=== PATIENT | male | born 1935 | race Two or more races ===

== ENCOUNTER → 2016-09-02 | Outpatient (CLI) | payer MEDICARE, MEDICAID ==
[~2016-09-02] VITALS: Ht 167.6 cm; Wt 73.0 kg
[~2016-09-02] MED LIST: ASPI-498 OR; ATOR20TA PO; CHOL50006 PO; CLOP75TA28 PO; GLUC750T29 PO; METO100T87 PO; NITR0.4S29 SL; RANO500T2 PO; SPIR25TA89 PO; TAM04C PO; VALS40TA2 PO
[2016-09-02 09:20] VITALS: BP 134/80
[2016-09-02 10:03] VITALS: BP 123/68
[2016-09-02 12:45] LABS: Basophils # (auto) 0 uL; Basophils % (auto) 0.5 % (0.0-2.0); Eosinophils # (auto) 0.2 uL; Eosinophils % (auto) 1.8 % (0.0-7.0); Hemoglobin 14.7 g/dL (13.5-17.5); Lymphocytes # (auto) 1.9 uL; Lymphocytes % (auto) 22.9 % (10.0-50.0); Mean Corpuscular Hemoglobin 27.1 pg (28.0-32.0); Mean Corpuscular Hgb Conc. 31.9 g/dL (32.0-36.0); Mean Corpuscular Volume 84.8 fL (80.0-100.0); Mean Platelet Volume 12.2 fL (7.4-10.4); Monocytes # (auto) 0.7 uL; Monocytes % (auto) 8.8 % (0.0-12.0); Neutrophils # (auto) 5.6 uL; Platelet Count (auto) 150 10^3/uL (140-450); White Blood Cell 8.4 10^3/uL (4.4-10.8)
[2016-09-02 12:48] LABS: INR 1.15 (0.9-1.15); Prothrombin Time 11.8 sec (9.37-12.3)
[2016-09-02 13:03] LABS: BUN/Creatinine Ratio 18.5; Calcium 9.3 mg/dL (8.5-10.1); Potassium 4.5 mmol/L (3.5-5.1)
== END | disposition home or self-care (01) ==
LOC: Rad HDHVI 09:14
PROVIDERS: ATTEND Internal Medicine Cardiovascular Disease
DX: I10 Essential (primary) hypertension (principal); D64.9 Anemia, unspecified; R79.1 Abnormal coagulation profile
CPT/HCPCS: 36415; 71020; 80048; 85025; 85049; 85610; 85730; 93005; G0463

== ENCOUNTER 2016-09-03 12:08 | Inpatient (IN) | payer MEDICARE, MEDICAID ==
[~2016-09-03] VITALS: Ht 165.1 cm; Wt 73.0 kg
[~2016-09-03 12:08] MED LIST changes: -CLOP75TA28 PO
[2016-09-03] MEDS ORDERED: LIDOCAINE 2%HCL (LOCAL ANESTH.) INJ 20ML MDV ONE ×2 (12:38→14:13)
[2016-09-03] MEDS ORDERED: ceFAZolin 1GM/50ML D5W 50 ML IV ONE (13:22)
[2016-09-03] MEDS ORDERED: VANCOMYCIN HCL 1000 MG VL ONE (13:23)
[2016-09-03] MEDS ORDERED: VANCOMYCIN 1GM/250ML D5W 250 ML IV ONE (13:23)
[2016-09-03] MEDS ORDERED: HYDROcodone-ACET 5/325MG TAB PO PRN (16:15)
[2016-09-03] MEDS ORDERED: NITROGLYCERIN 0.4 MG SL TAB SL PRN (16:15)
[2016-09-03] MEDS ORDERED: ACETAMINOPHEN 325 MG TAB PO PRN (16:15)
[2016-09-03] MEDS ORDERED: HYDROmorphone HCL 2 MG/ML VL IV PRN (16:15)
[2016-09-03] MEDS ORDERED: MORPHINE SULF INJ 2 MG/ML SYRINGE 1ML IV PRN (16:15)
[2016-09-03] MEDS: SODIUM CHLORIDE 0.9% IV SCH ×4 (16:17→17:02)
[2016-09-03] MEDS ORDERED: NITROGLYCERIN 0.4 MG SL TAB SL SCH (16:30)
[2016-09-03] MEDS ORDERED: GLUCOSAMINE HYDROCHLORIDE PO PRN (16:30)
[2016-09-03 22:00] VITALS: BP 112/62
[2016-09-03] MEDS: TAMSULOSIN HYDROCHLORIDE 0.4 MG CAP PO SCH (22:00)
[2016-09-03] MEDS ORDERED: TEMAZEPAM 15 MG CAP PO ONE (22:00)
[2016-09-03] MEDS: RANOLAZINE ER 500 MG TAB PO SCH (22:00)
[2016-09-03] MEDS ORDERED: TAMSULOSIN HYDROCHLORIDE 0.4 MG CAP PO ONE (22:44)
[2016-09-03] MEDS ORDERED: TEMAZEPAM 15 MG CAP ONE (22:45)
[2016-09-03] MEDS ORDERED: IPRIH IN (23:05)
[2016-09-04 05:00] VITALS: BP 131/65
[2016-09-04 09:36] VITALS: BP 117/42
[2016-09-04] MEDS ORDERED: SPIRONOLACTONE 25 MG TAB PO SCH (10:00)
[2016-09-04] MEDS ORDERED: ATORVASTATIN 20 MG TAB PO SCH (10:00)
[2016-09-04] MEDS: RANOLAZINE ER 500 MG TAB PO SCH (10:00)
[2016-09-04] MEDS ORDERED: CHOLECALCIFEROL (VITD3) 1,000 UNIT TAB PO SCH (10:00)
[2016-09-04] MEDS: TAMSULOSIN HYDROCHLORIDE 0.4 MG CAP PO SCH (10:00)
[2016-09-04] MEDS ORDERED: METOPROLOL SUCCINATE XL 50 MG TAB PO SCH (10:00)
[2016-09-04] MEDS ORDERED: VALSARTAN 80 MG TAB PO SCH (10:00)
[2016-09-04 11:18] VITALS: BP 156/86
== END 2016-09-04 12:30 | disposition home or self-care (01) | DRG 245 ==
LOC: CATH 12:08 → TELE-WESTW 12:09
PROVIDERS: ADMIT Internal Medicine Cardiovascular Disease; ATTEND Internal Medicine Cardiovascular Disease
PROC: 0JPT0PZ Removal of Cardiac Rhythm Related Device from Trunk Subcutaneous Tissue and Fascia, Open Approach (ICD-10-PCS; principal; 2016-09-03)
PROC: 0JH608Z Insertion of Defibrillator Generator into Chest Subcutaneous Tissue and Fascia, Open Approach (ICD-10-PCS; 2016-09-03)
DX: I25.5 Ischemic cardiomyopathy (principal); I50.22 Chronic systolic (congestive) heart failure; E11.9 Type 2 diabetes mellitus without complications; E78.5 Hyperlipidemia, unspecified; I11.0 Hypertensive heart disease with heart failure; Z95.1 Presence of aortocoronary bypass graft; Z95.810 Presence of automatic (implantable) cardiac defibrillator
CPT/HCPCS: 33263; 36415; 71010; 71020; 80048; 85025; 85049; 85610; 85730; 93005; 99152; G0463; J0690; J2250

== ENCOUNTER → 2016-11-20 | Day surgery (SDC) | payer MEDICARE, MEDICAID ==
[~2016-11-20] VITALS: Ht 1 cm; Wt 0.5 kg
[~2016-11-20] MED LIST changes: +AMIODARONE HCL 200 MG TAB PO ONE; +ANGIOMAX 250 MG VIAL IV ONE; +ATROPINE SULF 0.5 MG/5ML SYR ONE; +EPINEPHrine HCL 1 MG/10 ML SYRG ONE; +FLUMAZENIL 0.1 MG/ML INJ 10ML MDV IV ONE; +IOHEXOL 350 MG/ML 100ML IJ ONE; +IPRIH IN; +LIDOCAINE 2%HCL (LOCAL ANESTH.) INJ 20ML MDV ONE; +MIDAZOLAM HCL 1MG/1ML-2 ML VIAL ONE; +NALOXONE HCL 0.4 MG/ML VIAL ONE; +NITROGLYCERIN 5MG/ML 10ML VIAL IV ONE; +OMEG500C PO; +PRAS5TAB3 PO; +SODIUM CHL 0.9% 0 ML ONE; +fentaNYL CITRATE 100 MCG/2 ML VL ONE
[2016-11-20 07:55] LABS: Basophils # (auto) 0 uL; Basophils % (auto) 0.3 % (0.0-2.0); Eosinophils # (auto) 0.1 uL; Eosinophils % (auto) 1.5 % (0.0-7.0); Hematocrit 43.1 % (41.0-53.0); Lymphocytes % (auto) 20.4 % (10.0-50.0); Mean Corpuscular Hemoglobin 27.5 pg (28.0-32.0); Mean Corpuscular Hgb Conc. 32.5 g/dL (32.0-36.0); Mean Corpuscular Volume 84.9 fL (80.0-100.0); Monocytes # (auto) 0.9 uL; Monocytes % (auto) 9.2 % (0.0-12.0); Neutrophils # (auto) 6.7 uL; Neutrophils % (auto) 68.6 % (37.0-80.0); Platelet Count (auto) 144 10^3/uL (140-450); Red Cell Distribution Width 14.6 % (11.6-16.0); White Blood Cell 9.8 10^3/uL (4.4-10.8)
[2016-11-20 08:22] LABS: BUN/Creatinine Ratio 22.6; Calcium 8.8 mg/dL (8.5-10.1); Potassium 4.1 mmol/L (3.5-5.1)
[2016-11-20 08:45] LABS: INR 1.12 (0.9-1.15); Prothrombin Time 12.1 sec (9.37-12.3)
== END | disposition home or self-care (01) ==
LOC: CATH 06:50
PROVIDERS: ATTEND Internal Medicine Cardiovascular Disease
DX: I25.5 Ischemic cardiomyopathy (principal); I47.0 Re-entry ventricular arrhythmia; Z95.1 Presence of aortocoronary bypass graft
CPT/HCPCS: 36415; 71010; 80048; 85025; 85610; 93005; 93460; C1760; C1894; J0171; J0461; J1644; J2250; J3010; J7030; Q9967; 99152; J3490

== ENCOUNTER → 2016-12-06 | Outpatient (CLI) | payer MEDICARE, MEDICAID ==
[~2016-12-06] MED LIST changes: -AMIODARONE HCL 200 MG TAB PO ONE; -ANGIOMAX 250 MG VIAL IV ONE; -ATROPINE SULF 0.5 MG/5ML SYR ONE; -EPINEPHrine HCL 1 MG/10 ML SYRG ONE; -FLUMAZENIL 0.1 MG/ML INJ 10ML MDV IV ONE; -IOHEXOL 350 MG/ML 100ML IJ ONE; -IPRIH IN; -LIDOCAINE 2%HCL (LOCAL ANESTH.) INJ 20ML MDV ONE; -MIDAZOLAM HCL 1MG/1ML-2 ML VIAL ONE; -NALOXONE HCL 0.4 MG/ML VIAL ONE; -NITROGLYCERIN 5MG/ML 10ML VIAL IV ONE; -RANO500T2 PO; -SODIUM CHL 0.9% 0 ML ONE; -TAM04C PO; -fentaNYL CITRATE 100 MCG/2 ML VL ONE
[2016-12-06 16:50] LABS: Basophils # (auto) 0 uL; Basophils % (auto) 0.5 % (0.0-2.0); Eosinophils # (auto) 0.2 uL; Eosinophils % (auto) 2.3 % (0.0-7.0); Hematocrit 41.1 % (41.0-53.0); Hemoglobin 13.2 g/dL (13.5-17.5); Lymphocytes % (auto) 25.4 % (10.0-50.0); Mean Corpuscular Hemoglobin 27.1 pg (28.0-32.0); Mean Corpuscular Hgb Conc. 32.1 g/dL (32.0-36.0); Mean Corpuscular Volume 84.6 fL (80.0-100.0); Mean Platelet Volume 13.8 fL (7.4-10.4); Monocytes # (auto) 0.6 uL; Monocytes % (auto) 7.3 % (0.0-12.0); Neutrophils % (auto) 64.5 % (37.0-80.0); Platelet Count (auto) 143 10^3/uL (140-450); Red Cell Distribution Width 15.1 % (11.6-16.0); SUSPECT VIEW TRANSMISSION; White Blood Cell 7.8 10^3/uL (4.4-10.8)
[2016-12-06 17:04] LABS: BUN/Creatinine Ratio 18.5; Potassium 4.3 mmol/L (3.5-5.1)
[2016-12-06 17:27] LABS: B-Type Natriuretic Peptide 461.89 pg/mL (0-100); Temperature: 22.9 C (20.0-25.0)
== END | disposition home or self-care (01) ==
LOC: LAB 11:09
PROVIDERS: ATTEND Internal Medicine Cardiovascular Disease
DX: I50.9 Heart failure, unspecified (principal); D64.9 Anemia, unspecified; I10 Essential (primary) hypertension
CPT/HCPCS: 36415; 80048; 83880; 85025